=== PATIENT | male | born 1970 | race Caucasian/White ===

== ENCOUNTER 2017-11-20 11:30 | Emergency (ER) | payer SELFPAY ==
[2017-11-20] MEDS ORDERED: ASPIRIN 81 MG CHEW TAB ONE (11:33)
[2017-11-20] MEDS ORDERED: ASPIRIN 81 MG CHEW TAB PO ONE (11:35)
[2017-11-20] MEDS ORDERED: Lidocaine 2%Visc 15ml 20 MG/ML UDC ONE (11:37)
[2017-11-20] MEDS ORDERED: MAGNESIUM, ALUMINUM HYDROXIDE 30 ML UDC PO ONE (11:37)
[2017-11-20] MEDS ORDERED: MAG HYDROX/ALUMINUM HYD/SIMETH 30 ML, Lidocaine 2%Visc 15ml 20 MG, PHENobarb/HYOSCY/ATR... PO ONE ×3 (11:43)
[2017-11-20 11:47] LABS: BASOPHILS % 0.9 (0.0-1.5); EOSINOPHILS % 2.6 % (0.0-6.8); MEAN CORPUSCULAR VOLUME 89.4 fl (80.0-100.0); MONOCYTES % 5.7 % (0.0-11.0); NEUTROPHILS # 6.1 # k/uL (1.4-7.7)
--- NOTE | 2017-11-20 11:47 | ED Physician Documentation ---
Chest Pain - HISTORIAN Historian: patient - HPI Chief Complaint: Chest Pain Additional Information: Patient states that he had a sudden onset of epigastric lower substernal anterior chest pain. No known precipitating factor noted. No previous history of any pain. Associated with some diaphoresis, no nausea or vomiting noted. No change with breathing noted. Patient denies any cough or wheezing. Onset: hours (2 hours) Timing: sudden onset, still present Duration: constant Last known Well Date: 11/20/17 Last Known Well Time: 09:30 Last known Well Code/Unknown Code: Known Context: activity Severity: severe Quality: pressure Chest Pain Radiation: no radiation Chest Pain Signs/Symptoms: denies: nausea, vomiting, diaphoresis Worsened By: nothing Relieved By: nothing - ROS CONST: none. denies: fever, chills MS/LYMPH: none. denies: neck pain, calf pain, ankle swelling GI/: none - PAST HX NV risk factors: no pertinent history. denies: hypertension DVT/PE Risk Factors: none GI disease: none. denies: GERD, peptic ulcer, GI bleed Lung disease: none. denies: COPD, pneumothorax Surgeries/Procedures: none Immunizations: referred to PCP Allergies/Adverse Reactions: Allergies Allergy/AdvReac Type Severity Reaction Status Date / Time Penicillins Allergy Verified 11/20/17 11:53 Home Medications: Ambulatory Orders Medication Instructions Recorded NK [NK] 11/20/17 - SOCIAL HX Smoking History: non-smoker Alcohol Use: none - FAMILY HX Family HX: none - REVIEWED ASSESSMENTS Nursing Assessment Reviewed: Yes Vitals Reviewed: Yes Progress - Progress Progress: 12:04 Pain is not improved. Nausea is much better. 12:48 Pain is about 7/10. Still nothing seems to modify it. 13:57 Pain 3/10 ED Results Lab/Radiology - Radiology Radiology Impressions: Examination: PA and lateral chest. History: Evaluate lung ramirez. CHEST PAIN WITH N/V X 2-3 HOURS (Hx) Comparison exam: None available. Findings: PA lateral chest demonstrate a normal cardiac and mediastinal silhouette. No focal infiltrate. No blunting of the costophrenic margins. Osseous structures are appropriate for age. Impression: No acute pulmonary process. Examination: CT chest pulmonary embolism History: CHEST PAIN (Hx) Comparison exam: None provided Technique: CT chest pulmonic pulmonary embolism protocol. Findings: No evidence for luminal filling defect within the main pulmonary arteries to the 3rd order branch vessels bilaterally. Thoracic aorta without aneurysmal dilation. No evidence for dissection flap. Lungs demonstrate diffuse interstitial and vascular prominence bilaterally. No posterior pleural effusion. No mediastinal or asecncion mass or pathologic adenopathy. Scattered hilar calcified granuloma. Cardiac silhouette not enlarged. No effusion. Osseous structures demonstrate mild degenerative changes. Lower neck structures and axilla regions are without gross irregularity. Gallstone. No adjacent inflammation. Impression: No evidence for pulmonary embolism by CT criteria. No evidence for thoracic aortic dissection or abnormality. Diffuse interstitial and vascular prominence suggests a component of congestive edema. No effusion. - Orders Orders: ED Orders Category Date Time Status Continuous EKG monitoring Q30M Care 11/20/17 11:41 Ordered Continuous Pulse Oximetry Q30M Care 11/20/17 11:[address] IV Lock 1T Care 11/20/17 11:41 Ordered CBC/PLATELET/DIFF Routine Lab 11/20/17 11:41 Ordered CMP Routine Lab 11/20/17 11:41 Ordered CREATINE KINASE Routine Lab 11/20/17 11:41 Ordered D DIMER Routine Lab 11/20/17 Ordered TROPONIN I (cTnI) Stat Lab 11/20/17 11:41 Ordered Aspirin Med 11/20/17 11:33 Discontinued 324 mg .ROUTE .STK-MED ONE Aspirin Med 11/20/17 11:35 Once 324 mg PO NOW ONE Lidocaine 2%Visc 15ml [Xylocaine] Med 11/20/17 11:37 Discontinued 300 mg .ROUTE .STK-MED ONE MYLANTA 30 ML,LIDOCAINE HCL 20 ML, 10ML Med 11/20/17 11:43 Ordered Mag Hydrox/Aluminum Hyd/Simeth [Mylanta] 30 ml Lidocaine 2%Visc 15ml [Xylocaine] 20 ml PHENobarb/HYOSCY/ATROPINE/SCOP [] 10 ml PO NOW Magnesium, Aluminum Hydroxide [Maalox] Med 11/20/17 11:37 Discontinued 30 ml PO .STK-MED ONE Oxygen Daily Oxygen 11/20/17 11:45 Ordered EKG WITH COMPARISON Stat Ther 11/20/17 11:41 Ordered Chest Pain Physical Exam - EXAM General Appearance: alert, severe distress EENT: eye inspection normal, ENT inspection normal Neck: nml inspection, no carotid bruit, JVD present Respiratory: no resp. distress, chest non-tender, nml breath sounds. No: wheezes, rales, rhonchi, other CVS: reg. rate & rhythm, no murmur, no gallop, no friction rub, pulses full, pulses equal Abdomen: no organomegaly, normal bowel sounds, no abdominal bruit, tenderness ( epigastric area) Neuro: oriented X3, cognition normal Discharge Clincal Impression: Atypical chest pain Referrals: Dennys Potts MD [Primary Care Provider] - 2 Days Additional Instructions: Start taking Omeprazole 20mg daily. You may get this over the counter. Avoid caffeine, tobacco products, spicy foods and chocolates. If you continues to have problems to see your primary care provider or return to the ED. Condition: Good Decision to Admit: NO Date of Decison to Admit: 11/20/17 Decision Time: 15:16
[2017-11-20] MEDS ORDERED: NITROGLYCERIN 0.4 MG TAB.SUBL SL ONE ×2 (11:49→12:04)
[2017-11-20] MEDS ORDERED: ONDANSETRON HCL/PF 4 MG/ 2ML VIAL IVP ONE (11:50)
[2017-11-20] MEDS ORDERED: ONDANSETRON HCL/PF 4 MG/ 2ML VIAL ONE (11:50)
[2017-11-20 11:53] LABS: eGFR (African) > 60; eGFR (Non-African) > 60
[2017-11-20] MEDS ORDERED: MORPHINE SULFATE 4 MG/ML PREFILLED SYR IVP ONE (12:03)
[2017-11-20] MEDS ORDERED: KETOROLAC TROMETHAMINE 30 MG/1ML VIAL IVP ONE (12:50)
--- NOTE | 2017-11-20 13:10 | Diagnostic Imaging Report ---
JUSTYN RODRIGUEZ [facility] [address] [facility].[address] [address] Report Submission Date: November 20, 2017 12:48:51 PM CDT Patient Study Name: LOUANN CASTRO Date: November 20, 2017 12:28:00 PM CDT Modality Type: DX Gender: M Description: CHEST : 68 Institution: [facility] Physician: JUSTYN RODRIGUEZ Examination: PA and lateral chest. History: Evaluate lung ramirez. CHEST PAIN WITH N/V X 2-3 HOURS (Hx) Comparison exam: None available. Findings: PA lateral chest demonstrate a normal cardiac and mediastinal silhouette. No focal infiltrate. No blunting of the costophrenic margins. Osseous structures are appropriate for age. Impression: No acute pulmonary process. Electronically signed on November 20, 2017 12:48:51 PM CDT by: Cash GODL
[2017-11-20] MEDS ORDERED: PANTOPRAZOLE SODIUM 40 MG in 0.9 % SODIUM CHLORIDE 50 ML IV SCH (14:00)
[2017-11-20] MEDS ORDERED: PANTOPRAZOLE SODIUM INJ. 40 MG VIAL ONE (14:48)
[2017-11-20] MEDS ORDERED: 0.9 % SODIUM CHLORIDE 100 ML IV ONE (14:49)
--- NOTE | 2017-11-20 14:58 | Diagnostic Imaging Report ---
JUSTYN RODRIGUEZ [facility] [address] [facility] [address] [address] Report Submission Date: November 20, 2017 2:56:24 PM CDT Patient Study Name: LOUANN CASTRO Date: November 20, 2017 2:24:04 PM CDT Modality Type: CT\SR Gender: M Description: CT PE CHEST : 68 Institution: [facility] Physician: JUSTYN RODRIGUEZ Examination: CT chest pulmonary embolism History: CHEST PAIN (Hx) Comparison exam: None provided Technique: CT chest pulmonic pulmonary embolism protocol. Findings: No evidence for luminal filling defect within the main pulmonary arteries to the 3rd order branch vessels bilaterally. Thoracic aorta without aneurysmal dilation. No evidence for dissection flap. Lungs demonstrate diffuse interstitial and vascular prominence bilaterally. No posterior pleural effusion. No mediastinal or ascencion mass or pathologic adenopathy. Scattered hilar calcified granuloma. Cardiac silhouette not enlarged. No effusion. Osseous structures demonstrate mild degenerative changes. Lower neck structures and axilla regions are without gross irregularity. Gallstone. No adjacent inflammation. Impression: No evidence for pulmonary embolism by CT criteria. No evidence for thoracic aortic dissection or abnormality. Diffuse interstitial and vascular prominence suggests a component of congestive edema. No effusion. Gallstone. No adjacent inflammation. Electronically signed on November 20, 2017 2:56:24 PM CDT by: Cash GOLD
[2017-11-20 16:16] VITALS: BP 122/86
== END 2017-11-20 15:35 ==
LOC: ED 11:30
DX: R07.89 Other chest pain (principal)
CPT/HCPCS: 71046; 71275; 80053; 82550; 84484; 85025; 85379; 93005; 96365; 96375; 99285; A9270; J1885; J2270; J2405; Q9967; S1016